=== PATIENT | female | born 1940 | race Caucasian/White ===

== ENCOUNTER 2019-10-10 11:11 | Inpatient (IN) ==
[2019-10-10] MEDS ORDERED: ASPIRIN PO ONE (11:21)
--- NOTE | 2019-10-10 12:08 | Diag Imaging Result Doc PS360 ---
EXAM: CHEST-2 VIEWS HISTORY: sob TECHNIQUE: Two views COMPARISON: None. FINDINGS: The lungs are well expanded. The heart is mildly prominent. The vessels are not distended. There are no infiltrates. No pleural effusions. IMPRESSION: Mildly prominent heart, but no pulmonary edema or pneumonia. Electronically signed by Sidney Diamond 10/10/2019 12:05 PM
[2019-10-10 12:14] LABS: ALBUMIN 3.9 g/dL (3.5-5.0); CALCIUM 9.8 mg/dL (8.8-10.2); CREATININE 0.9 mg/dL (0.5-0.9); TOTAL PROTEIN 6.6 g/dL (6.3-8.3)
[2019-10-10 12:16] LABS: BASO# 0.03 X1000 (0.0-0.2); BASO% 1.1 % (0.0-0.8); EOS# 0.14 X1000 (0.0-0.7); EOS% 5.4 % (0.0-10.0); HEMATOCRIT 22.7 % (37.0-47.0); HEMOGLOBIN 6.6 g/dL (12.0-16.0); LYMPH# 0.85 X1000 (1.2-3.4); LYMPH% 32.6 % (20.5-51.1); MCH 27.6 PG (27-31); MCHC 29.1 g/dL (33-37); MONO% 11.5 % (1.7-9.3); MPV 10.5 FL (7.4-10.4); NEUT# 1.29 X1000 (1.4-6.5); NEUT% 49.4 % (42.2-75.2); PLT 193 X1000 (130-400); RBC 2.39 XMIL (4.2-5.4); WBC 2.61 X1000 (4.8-10.8)
[2019-10-10 12:19] LABS: INR 0.96; PROTIME 13.3 Seconds (11.0-16.0)
[2019-10-10 12:20] LABS: PTT 27.3 Seconds (22.3-41.8)
--- NOTE | 2019-10-10 12:57 | PROVIDER DOCUMENTATION ---
This chart was entered by Marnie Burns Scribe, acting as scribe for Manuel Pugh MD. HPI-Respiratory General - General Chief Complaint: Shortness of Breath Stated Complaint: SOB Time Seen by Provider: 10/10/19 11:39 Source: patient Allergies/Adverse Reactions: Patient Allergies Allergy/AdvReac Type Severity Reaction Status Date / Time No Known Allergies Allergy Verified 10/10/19 11:39 Home Medications: Home Medication List Medication Instructions Recorded Confirmed Last Taken Type Losartan/Hydrochlorothiazide 1 ea PO QAM 04/07/19 10/10/19 10/10/19 History [Losartan-Hctz 100-12.5 mg Tab] 1 tablet - History of Present Illness-Resp Nature of Presenting Problem: 79yof presents to ED cc SOB that is worsew ith exertion and at night for last 1.5 months but got worse over last 2 days. Pt denies Cough/RN/ST/CP. Pt is nontoxic and in no acute distress upon exam. Pt has hx of HTN. Quality of Pain: reports: tightness Severity in ED: reports: mild, moderate Onset/Duration: reports: other (1.5 months) Timing: reports: still present, intermittent Cough Quality/Degree: reports: no cough Current Respiratory Medication Therapy: Initiated see nurses note Modifying Factors: worse with: exertion Associated Symptoms: reports: shortness of breath, short of breath Similar Symptoms Previously?: Yes Recently seen or treated by another doctor?: No Review of Systems - Adult - REVIEW OF SYSTEMS - ADULT Constitutional: reports: see HPI, fatique. denies: chills, fever Eyes: reports: no symptoms reported Ears, Nose, Mouth & Throat: reports: see HPI. denies: ear pain, sinus problem Cardiovascular: reports: see HPI. denies: chest pain, palpitations Respiratory: reports: see HPI, shortness of breath. denies: cough, wheezing Gastrointestinal: reports: no symptoms reported Genitourinary: reports: no symptoms reported Musculoskeletal: reports: no symptoms reported Integumentary: reports: no symptoms reported Neurological: reports: no symptoms reported Psychiatric: reports: no symptoms reported Endocrine: reports: no symptoms reported Hematologic/Lymphatic: reports: no symptoms reported Allergic/Immunologic: reports: no symptoms reported All Other Systems: Reviewed and Negative Past History - Adult - PAST MEDICAL HISTORY-ADULT Review of Records: reports: Nursing Assessment Review, Medications Reviewed, Social history reviewed & non-contributory. Major Childhood Illnesses: reports: denies history Cardiovascular: reports: HTN Respiratory: reports: denies history Gastrointestinal: reports: denies history Obstetrical/Gynecological: reports: denies history Genitourinary: reports: denies history Musculoskeletal: reports: chronic pain Neurological: reports: denies history Psychiatric: reports: denies history Endocrine/Immune: reports: denies history Other Conditions: reports: denies history - PRIOR SURGERIES/PROCEDURES Surgical/Procedure History: reports: reviewed, not pertinent - IMMUNIZATION STATUS Childhood Immunizations: See Nurse Assessment Flu Vaccine: See Nurse Assessment - FAMILY HISTORY Family History: reviewed, not pertinent Physical Exam-General - PHYSICAL EXAM-ADULT Initial Vital Signs Reviewed: Yes - CONSTITUTIONAL General Appearance: appears well, alert, no apparent distress, obese. negative: anxious, combative - EYES Eyes: PERRL/EOMI, pink conjunctivae. negative: photophobia - HEAD, EARS, NOSE, MOUTH & THROAT HENMT: normocephalic/atraumatic, moist mucous membranes, other (trous palatinus) . negative: angioedema - NECK Neck: supple, normal inspection. negative: C-spine tenderness - RESPIRATORY Respiratory: chest non-tender, lungs clear, normal breath sounds, no pleuratic chest pain, no respiratory distress, no accessory muscle use. negative: crackles, rales, rhonchi, stridor, wheezing - CARDIOVASCULAR Cardiovascular: normal peripheral pulses, regular rate, rhythm, no edema, no gallop, no JVD, systolic murmur (faint). negative: bradycardia, tachycardia - GASTROINTESTINAL (ABDOMEN) Abdominal Exam: normal bowel sounds, soft, no organomegaly, no pulsatile mass, tenderness (epigastric with palpation). negative: distended, guarding, rigid, rebound - LYMPHATIC Lymphatic: no adenopathy. negative: enlargement - MUSCULOSKELETAL Extremity: normal inspection. negative: deformity - SKIN Integumentary: normal turgor, warm/dry, pallor. negative: diaphoresis, jaundice, rash - PSYCHIATRIC Psych/Mental Status: normal mood/affect, oriented x 3. negative: anxious, disheveled - HEART Score HEART Score: History: Slightly Suspicious HEART Score: ECG: Non-Specific Repolarization Disturbance/LBBB/PM HEART Score: Age: > or = 65 Years HEART Score: Risk Factors for Atherosclerotic Disease: 1 or 2 Risk Factors HEART Score: Troponin: < or = Normal Limit Total HEART Score:: 4 Progress - PLAN OF CARE/RESULTS Progress/Plan/Lab Results: Vital Signs - 8 hr 10/10/19 11:17 Temperature 98.4 F Pulse Rate 92 H Respiratory Rate 18 Blood Pressure 118/64 O2 Sat by Pulse Oximetry 99 Laboratory Results - last 24 hr 10/10/19 10/10/19 10/10/19 11:43 11:43 11:43 WBC 2.61 L RBC 2.39 L Hgb 6.6 L Hct 22.7 L MCV 95.0 MCH 27.6 MCHC 29.1 L RDW Std Deviation 14.0 Plt Count 193 MPV 10.5 H Immature Gran % (Auto) 0.0 Neut % (Auto) 49.4 Lymph % (Auto) 32.6 Morehouse % (Auto) 11.5 H Eos % (Auto) 5.4 Baso % (Auto) 1.1 H Immature Gran # (Auto) 0.00 Neut # (Auto) 1.29 L Lymph # (Auto) 0.85 L Morehouse # (Auto) 0.30 Eos # (Auto) 0.14 Baso # (Auto) 0.03 PT INR PTT (Actin FS) Sodium 143 Potassium 4.0 Chloride 107 Carbon Dioxide 20 L Anion Gap 15 BUN 18 Creatinine 0.9 Estimated GFR/1.73 m2 60 BUN/Creatinine Ratio 20 Glucose 148 H Calculated Osmolality 290 Calcium 9.8 Total Bilirubin 1.00 AST 27 ALT 13 Alkaline Phosphatase 96 Creatine Kinase 66 Troponin T High Sens Ohl-V-Owtqryfracp Pept Total Protein 6.6 Albumin 3.9 Globulin 3.0 Albumin/Globulin Ratio 1.0 TSH 2.33 10/10/19 10/10/19 10/10/19 11:43 11:43 11:43 WBC RBC Hgb Hct MCV MCH MCHC RDW Std Deviation Plt Count MPV Immature Gran % (Auto) Neut % (Auto) Lymph % (Auto) Morehouse % (Auto) Eos % (Auto) Baso % (Auto) Immature Gran # (Auto) Neut # (Auto) Lymph # (Auto) Morehouse # (Auto) Eos # (Auto) Baso # (Auto) PT 13.3 INR 0.96 PTT (Actin FS) 27.3 Sodium Potassium Chloride Carbon Dioxide Anion Gap BUN Creatinine Estimated GFR/1.73 m2 BUN/Creatinine Ratio Glucose Calculated Osmolality Calcium Total Bilirubin AST ALT Alkaline Phosphatase Creatine Kinase Troponin T High Sens 17 Jfv-[id number] Pept 123 Total Protein Albumin Globulin Albumin/Globulin Ratio TSH Orders Category Date Time Status Cardiac Monitoring DIRECTED Care 10/10/19 11:21 Active Oxygen Therapy- ED Nursing DIRECTED Care 10/10/19 11:21 Active Saline Loc NOW Care 10/10/19 11:21 Active CHEST-2 VIEWS [RAD] Stat Exams 10/10/19 11:21 Completed CBC WITH ELECTRONIC DIFF [HEME] Stat Lab 10/10/19 11:43 Completed CK PROFILE [SP CHEM] Stat Lab 10/10/19 11:43 Completed COMPREHENSIVE METABOLIC PANEL [CHEM] Stat Lab 10/10/19 11:43 Completed FERRITIN Stat Lab 10/10/19 12:54 Ordered OCCULT BLOOD DIAG 1-[address] Stat Lab 10/10/19 12:56 Uncollected PRO B-NATRIURETIC PEPTIDE Stat Lab 10/10/19 11:43 Completed PROTIME WITH INR [COAG] Stat Lab 10/10/19 11:43 Completed PTT [COAG] Stat Lab 10/10/19 11:43 Completed TIBC [UIBC W TOTAL IRON] [CHEM] Stat Lab 10/10/19 12:55 Ordered TROPONIN T HIGH SENSITIVITY Stat Lab 10/10/19 11:43 Completed TSH Stat Lab 10/10/19 11:43 Completed Aspirin Med 10/10/19 11:21 Discontinued 325 mg PO NOW ONE CP/SOB/Palp >45 yrs of Age Stat Oth 10/10/19 11:21 Ordered EKG [EKG] Stat Ther 10/10/19 11:21 Ordered Result Diagrams: 10/10/19 11:43 10/10/19 11:43 - EKG 1 Time of EKG reading by physician:: 12:35 EKG Read and Signed by:: Manuel Pugh EKG Interpretation (*Must complete 3 of following elements*): Abnormal Rate: 86 Rhythm: Sinus w/1st degree AV block QRS: RBB (incomplete) ST Wave: normal - XRAY 1 XRAY: Bilateral XRAY Study: Chest Impression: See EMR Report (IMPRESSION: Mildly prominent heart, but no pulmonary edema or pneumonia. Electronically signed by Sidney Diamond 10/10/2019 12:05 PM) - CONSULTS/PCP/HOSPITALIST Notification #1 *Consult/PCP/Hospitalist*: Dr. Abad Time Discussed: 12:55 Consult Disposition: Will see in ED Departure - Departure Date of Disposition Decision: 10/10/19 Time of Disposition Decision: 12:55 DIAGNOSIS: Symptomatic anemia Disposition: ADMITTED INPATIENT 09 Certified Medical Emergency: Emergent Condition: Stable Additional Instructions: ED Follow Up Instructions: You have been treated by a care provider in the Emergency Department. These instructions are being provided to you so you can have an understanding of how to care for yourself upon discharge. Upon discharge from the Emergency Depa rtment, you are responsible for making arrangements for follow-up care by a physician of your choice. Take all prescribed medications as directed. Return to the Emergency Department immediately for any new or worsening symptoms. You may call the Physician Referral phone number at [phone] to obtain a list of Physicians who are taking new patients. Referrals and Follow-Ups: Ally Velasquez MD [Primary Care Provider] - - Critical Care Note This patient required my direct & personal management of CC.: No Attestation - Physician/ AMANDA Attestation Patient care was provided by Advanced Practice Provider:: No The physician spent face to face time with patient:: Yes Advanced Practice Provider documentation review:: Supervising physician onsite and consulted in the evaluation and care of this patient. The physician did have a face to face encounter with the patient. This chart was documented by the indicated scribe, (Marnie Burns Scribe) and accurately reflects the services I performed and decisions made by me, Manuel Pugh MD, as attested by the provider's signature.
[2019-10-10 13:08] LABS: OCCULT BLOOD 1 NEGATIVE (NEGATIVE)
[2019-10-10 13:11] LABS: IRON SATURATION 5 %; TIBC 440 ug/dL; TOTAL IRON 24 ug/dL (49-151); UNBOUND IRON 416 ug/dL (112-346)
[2019-10-10] MEDS ORDERED: ZOFRAN IV PRN (13:12)
[2019-10-10] MEDS ORDERED: TYLENOL PO PRN (13:12)
[2019-10-10] MEDS ORDERED: SODIUM CHLORIDE 0.9% INJ SCH (13:15)
[2019-10-10] MEDS ORDERED: NS 500 ML IV ONE (13:31)
[2019-10-10] MEDS ORDERED: LASIX IV ONE ×2 (13:31→18:45)
[2019-10-10] MEDS: PROTONIX IV SCH (14:18)
--- NOTE | 2019-10-10 17:11 | EKG Report ---
Test Performed on : 10/10/2019 11:27:53 AM Test Reason : sob chest discomfort Blood Pressure : / mmHG Vent. Rate : 086 BPM Atrial Rate : 086 BPM P-R Int : 220 ms QRS Dur : 098 ms QT Int : 382 ms P-R-T Axes : 047 -18 026 degrees QTc Int : 457 ms Sinus rhythm. with 1st degree AV block. Incomplete right bundle branch block Borderline ECG No previous ECGs available Unconfirmed Result
--- NOTE | 2019-10-10 20:16 | HISTORY AND PHYSICAL ---
CHIEF COMPLAINT: Shortness of breath. HISTORY OF PRESENT ILLNESS: This is a 79-year-old female with a prior history of hypertension and chronic back pain, who presents to the emergency room complaining of shortness of breath that has been present for about a month and a half. She states that over this time it has increased in severity. It began as shortness of breath with exertion and over the last 2 days she has been short of breath at rest. She states that over the last week she has noticed that she has had to stop even doing her activities of daily such as bathing and fixing her hair, and rest in between. She denied any chest pain, any palpitations, cough, fever or chills, or any black or bloody stools. PAST MEDICAL HISTORY: 1. Hypertension. 2. Chronic back pain. PAST SURGICAL HISTORY: Total knee replacement. SOCIAL HISTORY: She denies any alcohol, tobacco or illicit drug use. She is . Her is presently in [facility] with diabetic ulcer complications. ALLERGIES: No known drug allergies. HOME MEDICATIONS: A list will be obtained by the nursing staff, and once verified we will review and restart as appropriate. REVIEW OF SYSTEMS: Discussed with the patient, with pertinent positives stated in the HPI. She denied any syncope or dizziness, any chest pain or palpitations, a productive cough, fever, chills, night sweats, any nausea, vomiting, diarrhea, constipation, black or bloody vomitus or stools, any hematuria, dysuria, frequency, urgency, any bleeding gums or any bruising. PHYSICAL EXAMINATION: GENERAL: This is a 79-year-old female who is lying on the stretcher in the emergency room in no distress. VITAL SIGNS: Blood pressure is 118/64 with a heart rate of 90, respirations are 18, temperature is 98.4 degrees with room air saturations 98% to 99%. EYES: Pupils equal, round and react to light. EOMs are intact. Sclerae are anicteric. HEENT: Head is normocephalic, atraumatic. Mucous membranes are moist. NECK: Supple, with trachea midline. CARDIOVASCULAR: Regular rate and rhythm. S1, S2 appreciated. She has no lower extremity edema. Calves are nontender bilateral. She does have a 1/6 systolic murmur. PULMONARY: Breath sounds are clear. No increased work of breathing noted. Chest rises and falls symmetric with respiration. Chest wall is nontender to palpation. GASTROINTESTINAL: Abdomen is soft, nontender, nondistended. Bowel sounds in all 4 quadrants. GENITOURINARY: No CVA or suprapubic tenderness. NEUROLOGIC: She is alert and oriented x3. SKIN: Warm and dry. LABORATORY DATA: WBC is 2.6 with hemoglobin 6.6, hematocrit 22.7 and platelets of 193,000. INR 0.96. Sodium 143, potassium 4, BUN 18, creatinine 0.9, glucose of 148. Troponin is 17. DIAGNOSTIC DATA: Chest x-ray reveals mildly prominent heart, but no pulmonary edema or pneumonia. ASSESSMENT: 1. Symptomatic anemia. 2. Dyspnea with orthopnea. 3. History of hypertension. 4. Chronic back pain. PLAN: The patient will be admitted to the medical/surgical floor and she will be placed on telemetry. We will give supplemental oxygen at 2 L. She will be typed and crossed, and we will transfuse 2 units of packed cells, 4 hours each. We will give 20 mg of Lasix in between the 2 units. Check orthostatic vital signs every 12 hours, with strict intake and output. We will obtain an echocardiogram. We will check ferritin, folate, total iron, TIBC and vitamin B12. Check a CBC and BMP in the morning. For DVT prophylaxis we will use SCDs, and for GI prophylaxis Protonix. Further treatments pending hospital course. Dictated by JAKE Calderón for Casimiro Abad MD cc: JAKE Calderón MD
[2019-10-10] MEDS ORDERED: NORCO-5 PO PRN (21:04)
--- NOTE | 2019-10-11 00:04 | HISTORY AND PHYSICAL ---
ADDENDUM: Patient seen and examined by myself. Full note dictated and discussed with nurse practitioner. Patient presented to the hospital noting that she is tired, fatigued. Currently, she is awake, alert. She is in no distress. Very pleasant to talk with. Hemoglobin and hematocrit are noted to be low. We are going to type, cross and transfuse. She currently is heme- negative. Further orders as needed. cc: Casimiro Abad MD
[2019-10-11] MEDS: PROTONIX IV SCH (02:03)
[2019-10-11 06:16] LABS: BASO# 0.03 X1000 (0.0-0.2); EOS# 0.22 X1000 (0.0-0.7); EOS% 7.5 % (0.0-10.0); HEMATOCRIT 28.5 % (37.0-47.0); HEMOGLOBIN 8.5 g/dL (12.0-16.0); IMM GRAN# 0.01 X1000 (0.0-0.04); IMM GRAN% 0.3 % (0.0-0.5); LYMPH# 1.31 X1000 (1.2-3.4); LYMPH% 44.4 % (20.5-51.1); MCH 27.8 PG (27-31); MCHC 29.8 g/dL (33-37); MCV 93.1 FL (81-99); MONO# 0.33 X1000 (0.11-0.59); MONO% 11.2 % (1.7-9.3); MPV 10.3 FL (7.4-10.4); NEUT# 1.05 X1000 (1.4-6.5); NEUT% 35.6 % (42.2-75.2); PLT 151 X1000 (130-400); RBC 3.06 XMIL (4.2-5.4); RDW 14.3 % (11.5-14.5); WBC 2.95 X1000 (4.8-10.8)
[2019-10-11 06:19] LABS: AGAP 11; BUN 18 mg/dL (8-22); CALCIUM 9.7 mg/dL (8.8-10.2); CHLORIDE 109 mmol/L (98-107); COSMO 287; CREATININE 0.8 mg/dL (0.5-0.9); ESTIMATED GFR > 60; GLUCOSE 102 mg/dL (70-104); POTASSIUM 3.9 mmol/L (3.5-5.1); SODIUM 143 mmol/L (136-145); TCO2 23 mmol/L (25-35)
[2019-10-11 06:24] LABS: IRON SATURATION 18 %; TIBC 414 ug/dL; TOTAL IRON 73 ug/dL (49-151); UNBOUND IRON 341 ug/dL (112-346)
[2019-10-11 07:48] VITALS: BP 152/52
[2019-10-11] MEDS ORDERED: ICAR-C PO SCH (09:00)
--- NOTE | 2019-10-11 14:03 | ECHO REPORT ---
ORDER DATE: 10/10/2019 INTERPRETING PHYSICIAN: Noble Pierre MD. ECHOCARDIOGRAPHIC MEASUREMENTS: 1. Interventricular septum 1.0. 2. Left ventricular posterior wall 1.0. 3. Diastolic diameter 5.3. 4. Left atrium 4.3. 5. Aortic 3. FINDINGS: 1. Aortic valve leaflets are trileaflet. 2. Mitral valve was normal. 3. Tricuspid valve was normal. 4. Prominent moderator band noted in the right ventricle, normal variant. 5. There is mild mitral regurgitation. 6. Mild tricuspid regurgitation. Peak velocity across the tricuspid valve less than 2 m/sec. 7. Normal left ventricular cavity size. Estimated ejection fraction of 65 to 70 percent. 8. There is mild left atrial enlargement. 9. There is no aortic stenosis or regurgitation. 10. There is no pericardial effusion or obvious intracardiac mass or thrombus seen. 11. Anterior echo-free space suggestive of pericardial fat pad noted. cc: MD Brigida Cespedes CRNP Gregory S. Cheatham, MD
--- NOTE | 2019-10-12 17:01 | DISCHARGE SUMMARY ---
ADMISSION DATE: 10/10/2019 DISCHARGE DATE: 10/11/2019 DIAGNOSES: 1. Symptomatic anemia. 2. Dyspnea with orthopnea. 3. History of hypertension. 4. Chronic back pain. DIAGNOSTICS: 1. Echocardiogram revealed an ejection fraction of 65 to 70%. No pericardial effusion or obvious intracardiac mass or thrombus seen. 2. Chest x-ray revealed mild prominent heart but no pulmonary edema or pneumonia. HOSPITAL COURSE: Ms. Azevedo presented to the emergency room complaining of shortness of breath that has been present for about 6 weeks. Over that time it has increased in severity and over the last 2 days she had shortness of breath at rest. When she had difficulty doing her activities of daily living this morning, she presented to the emergency room. She was found to have a hemoglobin of 6.6, hematocrit 22.7, for which she received 2 units of packed red blood cells. Today her hemoglobin and hematocrit are 8.5 and 28.5. Her stool for occult blood was negative. Iron studies, she was found to have an iron of 24 with a TIBC of 440, a ferritin of 12. Today she denies any shortness of breath. She states she feels much better and thankfully she is ready for discharge. DISCHARGE VITAL SIGNS: Blood pressure is 143/56, with a heart rate of 79, respirations are 18, temperature is 97.5 degrees oral, with O2 saturations of 98 to 100%. DISCHARGE PHYSICAL EXAMINATION: Cardiovascular: Regular rate and rhythm. S1 and S2 appreciated. She has no lower extremity edema. Calves are nontender bilateral. She does have a 1/6 systolic murmur. Pulmonary: Breath sounds are clear. No increased work of breathing noted. Chest rises and falls symmetric with respiration. Chest wall is nontender to palpation. Gastrointestinal: Abdomen is soft, nontender, nondistended with bowel sounds in all 4 quadrants. Neurologic: She is alert oriented x3. DISCHARGE MEDICATIONS: 1. Hyzaar 100/12.5 one p.o. daily. 2. ProAir inhaler 1 puff q.6 hours p.r.n. wheezing. FOLLOW UP: Dr. Velasquez, her primary care physician. She needs to call Sunday, update her on events, and schedule an appointment to be seen next week. She has been instructed to call to be seen sooner or return to the emergency room for any syncope, dizziness, chest pain, palpitations, temperature greater than 101, any shortness of breath, cough, any black or bloody vomitus or stools, or for any questions or concerns that she may have. DISPOSITION: She is being discharged home in stable condition with family members. TIME SPENT: This is a greater than 30 minute discharge. Dictated by JAKE Calderón for Casimiro Abad MD cc: JAKE Calderón MD
--- NOTE | 2019-10-12 21:02 | DISCHARGE SUMMARY ---
ADMISSION DATE: 10/10/2019 DISCHARGE DATE: 10/11/2019 ADDENDUM: Patient seen and examined by myself. Full note dictated and discussed with nurse practitioner. On discharge patient is awake, alert, pleasant, she is in no distress. She was typed, crossed, transfused. She will continue to follow up outpatient with primary care of her choice. Please see full note. cc: Casimiro Abad MD
== END 2019-10-11 10:25 | disposition home or self-care (01) | DRG 812 ==
LOC: P.ED 11:11 → P.MEDSURG 15:19 → SUATTDRO 15:19
PROVIDERS: ADMIT Family Medicine; ATTEND Family Medicine